=== PATIENT | male | born 1995 | race Two or more races ===

== ENCOUNTER 2017-01-17 16:26 | Emergency (ER) | payer BC ==
[2017-01-17] MEDS ORDERED: NS 0.9% 1000 ML* 1,000 ML IV ONE (16:32)
[2017-01-17] MEDS ORDERED: Ondansetron INJ* 2 MG/ML VIAL IV ONE (16:33)
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
== END 2017-01-17 21:10 | disposition home or self-care (01) ==
LOC: ED 16:26
DX: F10.129 Alcohol abuse with intoxication, unspecified (principal); R11.2 Nausea with vomiting, unspecified; R41.82 Altered mental status, unspecified; R45.5 Hostility; R47.81 Slurred speech
CPT/HCPCS: 36415; 80320; 96365; 99282; G0480; J2405